=== PATIENT | female | born 1990 | race Two or more races ===

== ENCOUNTER 2018-03-10 12:26 | Emergency (ER) | payer OTHER ==
[~2018-03-10] VITALS: Ht 154.9 cm; Wt 90.7 kg
[2018-03-10 12:26] VITALS: BP 139/80
[2018-03-10] MEDS ORDERED: IBUPROFEN 600 MG TABLET PO ONE ×2 (12:56→13:00)
== END 2018-03-10 13:00 | disposition home or self-care (01) ==
LOC: ER 12:31
DX: J06.9 Acute upper respiratory infection, unspecified (principal); F10.10 Alcohol abuse, uncomplicated; F17.200 Nicotine dependence, unspecified, uncomplicated
CPT/HCPCS: 99282; A4606; Z7610

== ENCOUNTER 2018-08-04 17:57 | Emergency (ER) | payer SELFPAY ==
[~2018-08-04] VITALS: Ht 162.6 cm; Wt 95.3 kg
[2018-08-04 18:06] VITALS: BP 132/75
== END 2018-08-04 19:11 | disposition home or self-care (01) ==
LOC: ER 17:57
DX: J06.9 Acute upper respiratory infection, unspecified (principal); F17.200 Nicotine dependence, unspecified, uncomplicated
CPT/HCPCS: 71045; 93005; 99284; A4606; Z7610